=== PATIENT | female | born 1950 | race Caucasian/White ===

== ENCOUNTER → 2024-07-27 | Outpatient (CLI) | payer MEDICARE, OTHER, SELFPAY ==
--- NOTE | 2024-07-27 14:15 | POL_PTH ---
PATIENT: KELLEE PATTERSON LOC: [facility] U#:[id number] AGE/SX: 74/F ROOM: RE07/27/[address]: Dr. Candida Lancaster MD : 1950 BED: DIS: 07/27/2024 SPEC #: [id number] RECD: 07/27/24 16:02 STATUS: LUCAS ARANDA #: [id number] NIKKO: 07/27/24 14:[address]: Candida Lancaster DEPT: SURGICAL PATHOLOGY RECD BY: Lor Cabrera Tissues: Uterine cervix, NOS Procedures: Surgery Specimen Level IV HEADER OPERATION: Polypectomy PRE-OP DIAGNOSIS: Polyp TISSUE SUBMITTED: Cervical polyp MICROSCOPIC DIAGNOSIS Cervical polyp, polypectomy: Benign cervical polyp, inflamed. AM.mr 07/29/2024 MICROSCOPIC DESCRIPTION Slides are reviewed. GROSS DESCRIPTION Received is one container labeled with the patient's name and not further designated. The specimen consists of a piece of barron-pink polyp measuring 2.5 x 1.5 x 1.0cm. The specimen is serially sectioned and submitted entirely in two cassettes. 07/28/2024 TC:1 CPT:19024
[2024-08-03 15:08] LABS: HPV APTIMA, High Risk Negative (Negative)
== END | disposition home or self-care (01) ==
PROVIDERS: Referring Provider Obstetrics & Gynecology; Visit Provider Obstetrics & Gynecology
DX: Z12.4 Encounter for screening for malignant neoplasm of cervix (principal); Z78.0 Asymptomatic menopausal state; N84.1 Polyp of cervix uteri
CPT/HCPCS: 87624; 88175; 88305; G0145

== ENCOUNTER → 2024-08-11 | Outpatient (CLI) | payer MEDICARE, OTHER, SELFPAY ==
--- NOTE | 2024-08-11 15:56 | US_ITS ---
INDICATION: pelvic pain EXAMINATION: Ultrasound US Pelvis Non OB Complete With Transvaginal Imaging TECHNIQUE: Transabdominal and transvaginal pelvic ultrasound was performed. Grayscale, spectral waveform, and color flow Doppler evaluation of the adnexa. COMPARISON: FINDINGS: UTERUS: Anteverted. The uterus measures 6.7 x 3.6 x 3.2 cm. There is no uterine mass. The endometrial stripe measures 23 mm in AP diameter with endometrial fluid and an echogenic irregular heterogeneous nodular 1.9 x 1.6 x 1.4 cm lesion. RIGHT OVARY: Nonvisualization. LEFT OVARY: Nonvisualization. FREE FLUID: None. US/Pelvic w/ Transvaginal IMPRESSION: Endometrial thickening with fluid and an echogenic irregular heterogeneous nodular 1.9 x 1.6 x 1.4 cm lesion. Further evaluation is recommended. Electronically Signed: Dany Castro DO at 17:42 EDT ,
== END | disposition home or self-care (01) ==
PROVIDERS: PCP Family Medicine; Referring Provider Obstetrics & Gynecology; Visit Provider Obstetrics & Gynecology
DX: R10.2 Pelvic and perineal pain (principal)
CPT/HCPCS: 76830; 76856

== ENCOUNTER → 2024-10-12 | Outpatient (CLI) | payer MEDICARE, OTHER, SELFPAY ==
--- NOTE | 2024-10-12 | EMB_PTH ---
PATIENT: KELLEE PATTERSON LOC: [facility]#:[id number] AGE/SX: 74/F ROOM: RE10/12/[address]: Dr. Candida Lancaster MD : 1950 BED: DIS: 10/12/2024 SPEC #: [id number] RECD: 10/12/24 11:49 STATUS: LUCAS REMitchel #: [id number] NIKKO: 10/12/24 00:[address]: Candida Lancaster DEPT: SURGICAL PATHOLOGY RECD BY: Kaiden Galloway ENTERED: 10/12/24 11:49 SP TYPE: ENDOM BX/C CORINNE DR: Dr. Gael Chakraborty MD Tissues: Endometrium, NOS Procedures: Surgery Specimen Level IV HEADER OPERATION: Endometrial biopsy PRE-OP DIAGNOSIS: Cystocele with incomplete uterovaginal prolapse TISSUE SUBMITTED: Endometrial tissue MICROSCOPIC DIAGNOSIS Endometrium, biopsy: Scant fragments of benign superficial glandular and squamous metaplastic epithelium. AM.mr 10/13/2024 MICROSCOPIC DESCRIPTION Slides are reviewed. GROSS DESCRIPTION Received is one container labeled with the patient's name and not further designated. The specimen consists of multiple mucoid fragments of that in aggregate measure 2.5 x 0.1 x <0.1cm. The specimen is totally submitted in one cassette. AM. 10/12/2024 TC:5 CPT:98957
== END | disposition home or self-care (01) ==
LOC: LABSPEC 10:47
PROVIDERS: PCP Family Medicine; Referring Provider Obstetrics & Gynecology; Visit Provider Obstetrics & Gynecology
DX: N81.2 Incomplete uterovaginal prolapse (principal)
CPT/HCPCS: 88305

== ENCOUNTER 2025-02-05 11:59 | Inpatient (IN) | payer MEDICARE, OTHER, SELFPAY ==
--- NOTE | 2024-11-06 08:17 | EKG12_ITS ---
Test Reason : PRE OP Blood Pressure : */* mmHG Vent. Rate : 56 BPM Atrial Rate : 56 BPM P-R Int : 216 ms QRS Dur : 84 ms QT Int : 426 ms P-R-T Axes : * -35 53 degrees QTcB Int : 411 ms Sinus bradycardia with 1st degree A-V block Left axis deviation Low voltage QRS Abnormal ECG Confirmed by FAUSTINA BLANCO, MONTSERRAT ([id number]), editor continuity and script BRIDGETTE CORRALES ([id number]) on 11/06/2024 10:52:05 AM Referred By: Candida Lancaster Confirmed By: MONTSERRAT WEEMS MD
[2024-11-06 08:54] LABS: Hematocrit 39.3 % (37-47); Mean Corp Hgb Conc 33.1 g/dL (32-36); Mean Corpuscular Volume 93.8 fL (81-99); Mean Platelet Vol. 8.4 fl (6.2-12.0); Platelet Count 359 K/mm3 (150-450); RBC Distribution Width CV 11.9 % (11.6-14.6); RBC Distribution Width SD 41.1 fl (35.1-43.9); Red Blood Count 4.19 M/mm3 (4.2-5.4); White Blood Count 7.8 K/mm3 (4.4-11.0)
[2024-11-06 09:25] LABS: ALB/GLOB Ratio 0.9 RATIO (0.9-2.4); AST(SGOT) 16 U/L (15-37); Alanine Aminotransfer ALT/SGPT 20 U/L (13-56); Albumin, Serum 3.4 g/dL (3.2-5.0); Alkaline Phosphatase 145 U/L (45-117); Anion Gap 6 (5-15); BUN 10 mg/dL (7-18); BUN/Creat Ratio 14.5 RATIO (10-20); Calcium,Total 9.3 mg/dL (8.5-10.1); Chloride 99 mmol/L (98-107); Creatinine, Serum 0.69 mg/dL (0.55-1.02); EST Glomerular Filtration Rate 89 mL/min (>60); Est Glom Filt Rate - Afr Amer 107 mL/min (>60); Globulin 3.8 g/dL (2.2-4.2); Glucose 100 mg/dL (74-106); Magnesium 2.1 mg/dL (1.6-2.6); Protein, Total 7.2 g/dL (6.4-8.2); Sodium Level 134 mmol/L (136-145)
--- NOTE | 2024-11-06 16:43 | PAT.ANE_ITS ---
Pre-Assessment Diagnosis/Proposed Procedure Planned Operative Procedure(s): Hysterectomy,Total Vaginal, Bilateral Salpingectomy Repair, Anterior & Posterior Sling Cysto Bilateral SSLF with Dermis Bilateral Ureteral Catheterization Anesthesia History Anesthesia History - email marketing manager: Anesthesia History - email marketing manager Hx Hospitalization No 10/30/24 08:51 Any Problems With Anesthesia No 10/30/24 08:51 Cholinesterase deficiency No 10/30/24 08:51 You/Your Family Experience No 10/30/24 08:51 fever (hyperthermia) with Relationship Recent Exposure to Contagious Disease Does patient have nerve No 10/30/24 08:51 stimulator Patient instructed to have device shut off --Does patient have Pacemaker or ICD? When Was Last Pacemaker Check QUESTION #4 FULL TEXT: You/Your Family Experience fever (hyperthermia) with Anesthesia Last Oral Intake Last Oral intake: Last Oral Intake NPO since Meds taken in AM with sips of water? Meds patient instructed to take am of surgery PONV PONV - email marketing manager: PONV - email marketing manager Female Yes 10/30/24 08:51 HX of Motion Sickness No 10/30/24 08:51 HX of N/V After Surgery No 10/30/24 08:51 Non-Smoker Yes 10/30/24 08:51 Duration of Surgery greater Yes 10/30/24 08:51 than 60 minutes Number of Risk Factors 3 10/30/24 08:51 PONV Score Moderate Risk 10/30/24 08:51 Height & Weight Height & Weight: Anesthesia: Height & Weight Height 5 ft 5.5 in 10/12/24 09:44 Respiratory Assessment Respiratory Assessment - email marketing manager: Respiratory Tract Infection Hx - email marketing manager Hx Respiratory Tract Infection Yes: GETTING OVER SINUS 10/30/24 08:51 INFECTION STOP Sleep Apnea STOP Sleep Apnea - email marketing manager: STOP Sleep Apnea - email marketing manager Hx Hypertension No 10/30/24 08:51 Hx Sleep Apnea No 10/30/24 08:51 CPAP BIPAP Do you snore loudly (louder No 10/30/24 08:51 than talking or can be heard Do you often feel tired/ No 10/30/24 08:51 fatigued/ sleepy during daytime? Has anyone observed you stop No 10/30/24 08:51 breathing during sleep? STOP Results Negative 10/30/24 08:51 QUESTION #5 FULL TEXT : Do you snore loudly (louder than talking or can be heard through closed doors)? Tobacco Use History Tobacco Use History - email marketing manager: Tobacco Use History - email marketing manager Tobacco Use Smoking Status Never smoker 10/30/24 08:51 Hx Tobacco Use No 10/30/24 08:51 Years Smoking Packs Smoked per Day Smoking Cessation Date was within the last 15 years Hx Smoking Cessation Date Hx Smoking Cessation Counseling Hematologic Medial History Hematologic Hx - email marketing manager: Hematologic Medical Hx - comb winder Hx of Blood Transfusion No 10/30/24 08:51 Hx of Transfusion in last 3 No 10/30/24 08:51 Months Date of Last Transfusion (if within last 3 months) Ever experience any problems No 10/30/24 08:51 with transfusion(s)? Specify any problems Hx of Preganancy in last 3 No 10/30/24 08:51 Months Nurse Filling Out Transfusion [facility] 10/30/24 08:51 & Questions: Date: 10/30/24 10/30/24 08:51 Time: 08:59 10/30/24 08:51 Patient unable to answer at this time (ie. confused, unrespo /Reproduction History /Reproductive History - email marketing manager: /Reproductive Hx- email marketing manager Hx Now No 10/30/24 08:51 Gestational Age (in weeks): EDC: Hx Hx Para Hx Section SAB No 10/12/24 09:50 REPLACED BY [facility] Medical History (Updated 10/30/24 @ 08:58 by Macarena Cooper) Wears dentures Bruising Bladder disease High cholesterol Non-smoker Bladder prolapse Prolapse of intestine Uterine prolapse Home Medications ?Medication ?Instructions ?Recorded ?Last Taken ?Type hydroxyzine HCl 25 mg tablet 25 mg PO QHS 07/27/24 Unknown History metoprolol succinate 25 mg 25 mg PO QDAY 07/27/24 Unknown History tablet,extended release 24 hr phentermine 37.5 mg capsule 37.5 mg PO QDAY 07/27/24 Unknown History rosuvastatin 5 mg tablet 5 mg PO QDAY 07/27/24 Unknown History Allergy/AdvReac Type Severity Reaction Status Date / Time Penicillins Allergy Unknown Rash Verified 10/26/24 11:28 Family History Father CAD (coronary artery disease) CVA (cerebral vascular accident) Heart disease Hypertension Mother Colon cancer Surgical History (Updated 10/30/24 @ 08:52 by Macarena Cooper) History of cataract surgery H/O Achilles tendon repair Social History household members: spouse housing: house number of children: 3 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 Sinus bradycardia at 56 bpm with first- degree AV block. Left axis deviation. Recommendation Anesthesia Recommendation Anesthesia recommendation: OPTIMIZED for anesthesia
[2025-01-29 10:43] LABS: Mean Corp Hgb Conc 34.2 g/dL (32-36); Mean Corpuscular Hgb 31.7 pg (27.0-32.0); Mean Corpuscular Volume 92.7 fL (81-99); Mean Platelet Vol. 8.5 fl (6.2-12.0); Platelet Count 318 K/mm3 (150-450); RBC Distribution Width CV 12.7 % (11.6-14.6); RBC Distribution Width SD 43.4 fl (35.1-43.9); White Blood Count 6.9 K/mm3 (4.4-11.0)
[2025-01-29 11:27] LABS: ALB/GLOB Ratio 1.3 RATIO (0.9-2.4); AST(SGOT) 20 U/L (<=31); Alanine Aminotransfer ALT/SGPT 13 U/L (<=34); Albumin, Serum 4.2 g/dL (3.4-4.8); Alkaline Phosphatase 114 U/L (35-104); Anion Gap 13 (5-15); BUN 13 mg/dL (4-19); Calcium,Total 9.5 mg/dL (7.6-11.0); Carbon Dioxide 24.2 mmol/L (21.0-32.0); Chloride 99 mmol/L (98-108); Creatinine, Serum 0.69 mg/dL (0.70-1.20); EST Glomerular Filtration Rate 91 (>60); Estimated Creatinine Clearance 63.35 ml/min (50-250); Globulin 3.3 g/dL (2.2-4.2); Glucose 96 mg/dL (70-99); Potassium 4.2 mmol/L (3.3-5.1); Protein, Total 7.5 g/dL (5.9-8.4); Sodium Level 135 mmol/L (133-145); Total Bilirubin 0.32 mg/dL (0.00-1.30)
[2025-01-29 11:58] LABS: Magnesium 2.2 mg/dL (1.5-2.2)
[2025-02-05] VITALS (11 sets, daily range): BP systolic 110–148; BP diastolic 59–98; PULSE 58–66; RESP 13–18; TEMP 36.1–36.8; O2SAT 96–100; BMI 31.4
[2025-02-05] MEDS: DEXTROSE 5% IV (10:38)
[2025-02-05] MEDS: GENTAMICIN IV (10:38)
[2025-02-05] MEDS: Lactated Ringers 1,000 ML 40 ML IV (10:38)
[2025-02-05] MEDS: WATER IV (10:38)
[2025-02-05] MEDS: Gabapentin 600 MG Tablet PO (10:40)
[2025-02-05] MEDS: Celecoxib 200 MG Capsule 400 MG PO (10:40)
[2025-02-05] MEDS: Enoxaparin 40 MG/0.4 ML Syringe SC (10:41)
[2025-02-05] MEDS: Acetaminophen 500 MG Tablet 1000 MG PO ×3 (10:41→21:15)
[2025-02-05 10:42] LABS: Hematocrit 42.9 % (37-47); Hemoglobin 14.1 g/dL (12.0-15.0); Mean Corp Hgb Conc 32.9 g/dL (32-36); Mean Corpuscular Hgb 31.3 pg (27.0-32.0); Mean Corpuscular Volume 95.1 fL (81-99); Mean Platelet Vol. 8.9 fl (6.2-12.0); Platelet Count 353 K/mm3 (150-450); RBC Distribution Width CV 12.7 % (11.6-14.6); RBC Distribution Width SD 44.6 fl (35.1-43.9); Red Blood Count 4.51 M/mm3 (4.2-5.4)
[2025-02-05] MEDS: Scopolamine 1mg/72hr Patch 1 PATCH TD (10:42)
[2025-02-05] MEDS: Magnesium 1 GM over 15 mins IV (10:45)
[2025-02-05 11:01] LABS: Bedside Glucose 69 mg/dL (74-106)
--- NOTE | 2025-02-05 11:06 | HP.PCM_ITS ---
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 Complaint: Preop TVHBS Lead Operator Required: No Is patient in pain?: No Allergies Penicillins Allergy (Unknown, Verified 10/26/24 11:28) Rash Medications ?Medication ?Instructions ?Recorded ?Confirmed ?Type hydroxyzine HCl 25 mg tablet 25 mg PO QHS 07/27/24 10/26/24 History metoprolol succinate 25 mg 25 mg PO QDAY 07/27/24 10/26/24 History tablet,extended release 24 hr phentermine 37.5 mg capsule 37.5 mg PO QDAY 07/27/24 10/26/24 History rosuvastatin 5 mg tablet 5 mg PO QDAY 07/27/24 10/26/24 History Is last menstrual period known: No Post menopausal: Yes Patient : No Nurse's Note: Preop [facility]S [facility] Medical History Bladder prolapse Uterine prolapse Prolapse of intestine Surgical History H/O Achilles tendon repair Family History Father CAD (coronary artery disease) CVA (cerebral vascular accident) Heart disease HypertensionMother Colon cancer Social History household members: spouse housing: house number of children: 3 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 She has had a prolapse consultation and cervical polyp. Patient saw Dr. Corrales and is wanting to proceed with surgical intervention however cervical polyp was seen on exam so she was sent here to be evaluated as well as to coordinate surgical intervention. Patient denies any bleeding but has noted significant vaginal pressure and discomfort. She has urinary symptoms and is ready to proceed with hysterectomy and pelvic floor repair. Female Reproductive History Questions: metorrhagia: No, dyspareunia: No and PCB: No Menopausal Symptoms: No night sweats History 4 Elective abortions Hx Para 3 Spontaneous abortions Hx # Term Pregnancies Ectopic pregnancies Hx # Pregnancies Multiple births # of living children Past Pregnancies Del. Date Name GA/Weeks Outcome Route Bth Weight Gen Labor Lgth Anesthesia Del Locatn Provider FOB Unknown Claudia Unknown Breanna Unknown Radha ROS Const Constitutional: Reports system reviewed and no additional complaints, except as documented; Denies fatigue, headache(s) or night sweats ENT ENT: Reports system reviewed and no additional complaints, except as documented Cardio Card: Denies chest pain Resp Resp: Denies cough or dyspnea GI GI: Denies abdominal pain, bloating, change in stool character, constipation, fecal incontinence, nausea or vomiting : Reports pelvic pain, prolapse symptoms, urinary frequency, urinary incontinence, urinary urgency and vaginal dryness; Denies nipple discharge, sexual dysfunction, vaginal discharge, vaginal odor or vaginal pruritus Musc Musc: Reports arthralgias and back pain; Denies muscle weakness Skin Skin/Breast: Denies alopecia, change in hair, dry skin, breast mass, breast pain, breast skin changes or nipple discharge Neuro Neuro: Reports system reviewed and no additional complaints, except as documented Psych Psych: Denies anxiety or depression Endo Endo: Denies cold intolerance, excessive sweating, heat intolerance or polydipsia Craig/Lymph Hematologic/Lymphatic: Denies easy bleeding, Denies easy bruising and Denies lymphadenopathy Exam Const General: cooperative, healthy appearing, comfortable, no acute distress and well developed Orientation: alert [facility] Head: normal to inspection, normocephalic and atraumatic Ears: hearing grossly normal bilaterally and external ears normal Nose: external nose normal and nares normal Face and sinus: normal facial exam Neck Neck: normal visual inspection, full ROM, no lymphadenopathy and trachea midline Thyroid: thyroid normal Chest Chest palpation & inspection: normal inspection of the chest Breast inspection: normal inspection of the breasts, normal inspection of the a xillae, abnormal inspection of the axilla and abnormal inspection of the breast Resp Effort & Inspection: normal respiratory effort Auscultation: clear to auscultation bilaterally Cardio Rate: regular rate Rhythm: regular rhythm Heart Sounds: S1 normal and S2 normal GI Inspection: normal to inspection and non-distended Palpation: soft, no hepatosplenomegaly, no hepatomegaly, not rigid and nontender General: bladder normal to palpation External Female Exam: abnormal external appearance (atrophic introitus), normal appearance of the urethra and no lesions Urethra: normal appearance of the urethra Speculum Exam - Vagina: abnormal appearance of the vagina, normal vaginal discharge, vagina atrophic and no lesions Speculum Exam - Cervix: normal appearance of the cervix Bimanual Exam- Vagina & Uterus: normal bimanual exam, uterine size normal, bladder normal to palpation, uterine shape normal, uterine mobility normal and non-tender Bimanual Exam- Adnexa, other: normal adnexae, no masses, rectocele, cystocele and vaginal apex descent Pelvic Support: cystocele severe, rectocele severe and vaginal apex descent Musc Other: gross motor intact no deficits, full bilateral strength Skin General: no rashes or lesions noted and atrophy Neuro General: patient alert, patient awake, moves all extremities and no focal motor deficits Motor: muscle tone normal throughout Extrem General: normal to inspection and no pedal edema Psych Appearance: grossly normal Mental Status: mental status grossly normal Affect: normal affect Speech and Movement: speech and movement normal Coding Level of Care Code No Charge Diagnoses Cystocele with incomplete uterovaginal prolapse N81.2 Cervical polyp N84.1 Assessment and Plan Assessment and Plan (1) Cystocele with incomplete uterovaginal prolapse: Status: Acute Comment: TVHBS with [place] butcher case (2) Cervical polyp: Status: Acute Comment: removed Plan After discussing the patient's diagnosis and treatment plan options, patient wishes to proceed with surgical management. I have discussed with the patient the risks, benefits, and alternatives of the procedure which include but are not limited to risks of anesthesia, bleeding, infection, possible damage to bowel, bladder, or surrounding vasculature which could lead to additional surgery to evaluate any complications. Patient agrees to procedure and wishes to proceed. ACOG/uptodate references given for additional information regarding procedure. UPDATE- I have seen the patient and performed any clinically relevant updates to the history and physical exam. Candida Lancaster MD
--- NOTE | 2025-02-05 11:08 | PCM.PRE.AN2 ---
ASA Classification* ASA Classification ASA Classification: 2 Assessment & Plan Anesthesia* Anesthesia Assessment Anesthesia Assessment: Discussed sedation and/or anesthesia options, risks, benefits, and alternatives with patient/parents/legal guardian/POA. Questions invited. The patient/parents/legal guardian/POA seems to understand and agrees to proceed with anesthesia plan. Reviewed the physical assessment, medical history, allergy history and patient home medications list prior to surgery/procedure/anesthetic and documented any changes. Performed airway and anesthesia risk assessments. Anesthesia Type Anesthesia Type: General (Consider [place] scope intubation.) History Source History Obtained from:: Patient and Chart Anesthesia Focused Assessment* Temperature: 98.0 F Pulse Rate: 65 Blood Pressure: 148/98 Respiratory Rate: 18 Pulse Ox: 100 Oxygen Delivery Method: Room Air Airway Assessment Mouth opens: >3 cm Mallampati Score: IV (Consider GlideScope intubation) Teeth Condition: Dentures (Patient has upper full dentures.) and Partial (Patient has partial lower dentures. Rest are tight.) Neck Range of motion (ROM): Full ROM Focused Labs Anesthesia Preop lab: CBC WBC 12.0 K/mm3 (4.4-11.0) H 02/05/25 10:02/05/25 RBC 4.51 M/mm3 (4.2-5.4) 02/05/25 10:02/05/25 Hgb 14.1 g/dL (12.0-15.0) 02/05/25 10:31 02/05/25 Hct 42.9 % (37-47) 02/05/25 10:31 02/05/25 Plt Count 353 K/mm3 (150-450) 02/05/25 10:31 02/05/25 CHEMISTRY Potassium 4.2 mmol/L (3.3-5.1) 01/29/25 09:41 01/29/25 Sodium 135 mmol/L (133-145) 01/29/25 09:41 01/29/25 Magnesium 2.2 mg/dL (1.5-2.2) 01/29/25 09:42 01/29/25 BUN 13 mg/dL (4-19) 01/29/25 09:41 01/29/25 Creatinine 0.69 mg/dL (0.70-1.20) L 01/29/25 09:41 01/29/25 Glucose 96 mg/dL (70-99) 01/29/25 09:41 01/29/25 POC Glucose 69 mg/dL (74-106) L 02/05/25 10:37 02/05/25 COAG Pre-Assessment Diagnosis/Proposed Procedure Planned Operative Procedure(s): (B) ERAS,Hysterectomy,Total Vaginal, Bilateral Salpingectomy (B) Repair, Anterior & Posterior Sling Cysto Bilateral SSLF with Dermis Bilateral Ureteral Catheterization Anesthesia History 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 When Was Last Pacemaker Check QUESTION #4 FULL TEXT: You/Your Family Experience fever (hyperthermia) with Anesthesia Last Oral Intake Last Oral intake: Last Oral Intake NPO since 08:00 02/05/25 10:33 Meds taken in AM with sips of Yes 02/05/25 10:33 water? 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 Female Yes 01/22/25 10:04 HX of Motion Sickness No 01/22/25 10:04 HX of N/V After Surgery No 01/22/25 10:04 Non-Smoker Yes 01/22/25 10:04 Duration of Surgery greater Yes 01/22/25 10:04 than 60 minutes Number of Risk Factors 3 01/22/25 10:04 PONV Score Moderate Risk 01/22/25 10:04 Height & Weight Height & Weight: Anesthesia: Height & Weight Height 5 ft 5.5 in 02/05/25 10:33 Weight: 87 kg 02/05/25 10:33 Body Mass Index (BMI) 31.4 02/05/25 10:33 Respiratory Assessment Respiratory Assessment - 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 Has anyone observed you stop No 01/22/25 10:04 breathing during sleep? STOP Results Negative 01/22/25 10:04 QUESTION #5 FULL TEXT : Do you snore loudly (louder than talking or can be heard through closed doors)? 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 Specify any problems Hx of Preganancy in last 3 No 01/22/25 10:04 Months Nurse Filling Out Transfusion VCHRISTIN 01/22/25 10:04 & Questions: Date: 01/22/25 01/22/25 10:04 Time: 10:04 01/22/25 10:04 Patient unable to answer at this time (ie. 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 operator Hx Now No 01/22/25 10:04 Gestational Age (in weeks): EDC: Hx Hx Para Hx Section SAB No 01/22/25 10:04 Active Medications Active Medications: Current Medications Generic Name Dose Route Start Last Admin Trade Name Freq PRN Reason Stop Dose Admin Acetaminophen 1,000 mg 02/05/25 12:00 02/05/25 10:41 Acetaminophen 500 Mg Tablet PO 02/05/25 12:01 1,000 mg PREOP ONE Administration Celecoxib 400 mg 02/05/25 12:00 02/05/25 10:40 Celecoxib 200 Mg Capsule PO 02/05/25 12:01 400 mg X1 ONE Administration Dexamethasone Sodium Phosphate 8 mg 02/05/25 12:00 Dexamethasone 4 Mg/Ml Vial IV 02/05/25 12:01 X1 ONE Enoxaparin Sodium 40 mg 02/05/25 12:00 02/05/25 10:41 Enoxaparin 40 Mg/0.4 Ml Syringe SC 02/05/25 12:01 40 mg X1 ONE Administration Gabapentin 600 mg 02/05/25 12:00 02/05/25 10:40 Gabapentin 600 Mg Tablet PO 02/05/25 12:01 600 mg PREOP ONE Administration Lactated Ringer's 1,000 mls @ 40 mls/hr 02/05/25 12:00 02/05/25 10:38 IV 40 mls/hr .Q25H JAYNE Administration Clindamycin Phosphate 900 mg in 50 mls @ 75 mls/hr 02/05/25 12:00 Cleocin IV 02/05/25 12:39 PREOP ONE Gentamicin Sulfate 330 mg/ 58.25 mls @ 100 mls/hr 02/05/25 12:00 02/05/25 10:38 Dextrose IV 02/05/25 12:34 100 mls/hr PREOP ONE Administration Magnesium Sulfate 1 gm/ 102 mls @ 408 mls/hr 02/05/25 12:00 Dextrose IV 02/05/25 12:14 X1 ONE Insulin Human Lispro 0 unit 02/05/25 12:00 Insulin Lispro 100 Unit/Ml Insuln.Pen SC 02/05/25 18:00 Q4H PRN PRN BG >/= 180, SEE PROTOCOL Protocol Ondansetron HCl 4 mg 02/05/25 12:00 Ondansetron 4 Mg/2 Ml Vial IV 02/05/25 12:01 X1 ONE Scopolamine HBr 1 patch 02/05/25 12:00 02/05/25 10:42 Scopolamine 1mg/72hr Patch TD 02/05/25 12:01 1 patch X1 ONE Administration [facility] Medical History Wears dentures Bruising Bladder disease High cholesterol Non-smoker Bladder prolapse Prolapse of intestine Uterine prolapse Home Medications ?Medication ?Instructions ?Recorded ?Last Taken ?Type hydroxyzine HCl 25 mg tablet 25 mg PO QHS 07/27/24 02/04/25 History metoprolol succinate 25 mg 25 mg PO QDAY 07/27/24 02/05/25 History tablet,extended release 24 hr phentermine 37.5 mg capsule 37.5 mg PO QDAY 07/27/24 01/31/25 History rosuvastatin 5 mg tablet 5 mg PO QDAY 07/27/24 02/04/25 History ascorbic acid (vitamin C) 1,000 mg 1 g PO DAILY 01/22/25 02/04/25 History tablet (C-1000) cholecalciferol (vitamin D3) 25 25 mcg PO DAILY 01/22/25 02/04/25 History mcg (1,000 unit) capsule (Vitamin D3) coenzyme Q10 30 mg capsule (Co 30 mg PO DAILY 01/22/25 02/04/25 History Q-10) multivitamin (Daily Multi-Vitamin 1 tab PO DAILY 01/22/25 02/04/25 History tablet) turmeric 400 mg capsule 400 mg PO DAILY 01/22/25 02/04/25 History vitamin B complex 1 tab PO DAILY 01/22/25 02/04/25 History Allergy/AdvReac Type Severity Reaction Status Date / Time Penicillins Allergy Unknown Rash Verified 02/05/25 10:29 Family History Father CAD (coronary artery disease) CVA (cerebral vascular accident) Heart disease Hypertension Mother Colon cancer Surgical History History of cataract surgery H/O Achilles tendon repair Social History household members: spouse housing: house number of children: 3 current occupational status: 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
--- NOTE | 2025-02-05 11:36 | PCM.OPRPT ---
Problems Associated Problem List Diagnoses (1) Cystocele with incomplete uterovaginal prolapse: Operative Report (Standard) Operative Information Date of Procedure: 02/05/25 Pre-Operative Diagnosis: Incomplete uterovaginal prolapse, stress urinary incontinence Post-Operative Diagnosis: Same Surgery/Procedure Performed: Anterior and posterior repair, right sacrospinous ligament fixation, mid urethral sling, cystoscopy with bilateral ureteral catheterization farm contractor buyer: Yes Hide Handler: Lilia Cook Tasks completed by assistant housekeeping manager: Retracting Type of Anesthesia: General RN Documented Start/Stop Times: Operation Date: 02/05/25 12:00 Case Time Into Pre-Op 02/05/25 10:06 Out of Pre-Op 02/05/25 11:52 Anesthesia Start 02/05/25 11:56 Into Room 02/05/25 11:56 Procedure Start 02/05/25 12:20 Procedure End 02/05/25 15:23 Procedure Start Time: 12:20 Procedure Stop Time: 15:23 Select all DRAINS/GRAFTS/IMPLANTS that apply: Drains Drain details: Quevedo catheter Estimated Blood Loss: 40 cc Specimen collected: No Description of surgery: The patient is a 74-year-old female with significant incomplete uterovaginal prolapse. She presents for surgical intervention. Informed consent was obtained. She was taken to the operating room and placed on the operating room table. Anesthesia monitored the head, neck, airway, IV access and vital signs throughout the case. Once anesthesia was appropriately administered, she was prepped and draped in usual sterile fashion. A Quevedo catheter was inserted using sterile technique the bladder was drained. Dr. Lancaster performed her portion of the procedure and turned the case over to me. At this time, the Quevedo catheter was once again removed and the cystoscope was inserted into the urinary bladder under direct visualization. There was no evidence of injury, laceration or foreign body present. The whistle-tip catheter was used to cannulate the right ureteral orifice were easily advanced to 20 cm with no evidence of injury or obstruction. This was then repeated on the patient's left side with the same findings. The cystoscope and whistle-tip catheter were then removed and the Quevedo catheter was replaced with 10 cc in the balloon. I then proceeded to reconstruct her anterior vaginal wall. The anterior vaginal wall was short in length. The sacrospinous ligaments were not accessible from the anterior vaginal wall. The submucosa was injected with Marcaine. A midline incision was made and sharp and blunt dissection was performed bilaterally until the pubocervical fascia was identified bilaterally. This fascia was brought together in a 2 layer closure first using 3-0 PDS followed by 2-0 Vicryl. The incision was then closed with running interlocking 2-0 Vicryl. Attention was then turned posteriorly where the tissue in the submucosa was injected with Marcaine. A midline incision was made and sharp and blunt dissection was performed bilaterally until the rectovaginal fascia was identified. On the right side only, dissection continued all the way to the sacrospinous ligament. This ligament was freed from surrounding tissues with blunt dissection. The [employer] Foods[employer] device was then utilized to place a lisa into the sacrospinous ligament. An Ethibond suture was then brought through in full-thickness fashion the vaginal mucosa posteriorly at the apex. This was tied into position. The rectovaginal fascia was then brought together in a 2 layer closure using both interrupted 3-0 PDS followed by 2-0 Vicryl interrupted suturing. Once the support structures were in place and the perineal body was reconstructed, the incision was closed with running interlocking 2-0 Vicryl. The mid urethra was then isolated and injected with Marcaine. A midline incision was made approximately 2 cm in length. Sharp and blunt dissection was performed on either side of the urethra with care being taken to avoid entrance into the urethra or the vaginal mucosa. Using the provided trocars, the Altis mid urethral sling was placed into the transobturator complexes bilaterally. It lay flat against the urethra in and was positioned using the tensioning suture. When it was in correct location, the tensioning suture was cut. The midline incision was closed using running interlocking 2-0 Vicryl. The patient was then taken out of Trendelenburg and placed flat. The Quevedo catheter was removed and the cystoscope was inserted through the urethra under direct visualization. There was no evidence of injury to the urinary bladder. The ureteral orifices were in correct anatomic position and were intubated gently with a whistle-tip catheter. The whistle-tip catheter advanced all the way to 20 cc without difficulty on the patient's left side it advanced to 15 cc without difficulty and then a large jet of urine was visualized. The cystoscope and whistle-tip catheter were then removed and the Quevedo catheter was replaced with 10 cc in the balloon. The vagina was packed with saline moistened plain packing. She was awakened and taken to the recovery room in good condition. There were no complications during this procedure. Surgical Findings: Good vault length, short anteriorly and sacrospinous ligament fixation performed through posterior access. Complications Complications: No Admit VTE Documentation VTE Present on Admission: Yes VTE Mechan Device Prophylaxis: SCD's VTE Pharm Prophylaxis ordered?: Yes
--- NOTE | 2025-02-05 11:38 | DCINST_ITS ---
Discharge Instructions Diet Discharge Diet: No restrictions Activity Discharge Activity: May Drive (In 2 weeks) and May Shower May resume sexual activity in: 8 weeks Lifting Restrictions: 5 pounds, no strenuous activity, no exercise, no vacuuming, no walking dog Additional Activity Instructions:: No tub bathing, swimming or hot tubs Dressing / Incision Call your doctor if your incision/area has: Continuous Slow Oozing, Sudden Increased Bleeding, Increased Pain/ Swelling and Foul Smelling Discharge Call your doctor if you observe: Fever of 101 or Higher, Inability to urinate and Inability to have a bowel movement Follow Up Care Please Follow Up With: Cata Corrales MD When: Dr. Corrales's office will call to make follow-up arrangements for appointment in 1 to 2 weeks. Test Results: Test results from this visit will be discussed in further detail at your follow- up appointment, if applicable. Discharge Plan Admission Admit Date/Time: 02/05/25 11:59 Attending Provider: Candida Lancaster Primary Care Provider: Gael Chakraborty Consulting Providers: Cata Corrales Discharge Orders/Prescriptions Prescriptions: New oxycodone-acetaminophen 5-325 mg tablet 1 tab PO Q8H PRN (Reason: pain) 3 Days Qty: 10 0RF ondansetron 4 mg tablet,disintegrating 4 mg PO Q8H PRN (Reason: nausea and vomiting) Qty: 10 0RF sulfamethoxazole-trimethoprim 800-160 mg tablet 1 tab PO BID 3 Days Qty: 6 0RF Continued hydroxyzine HCl 25 mg tablet 25 mg PO QHS metoprolol succinate 25 mg tablet extended release 24 hr 25 mg PO QDAY phentermine 37.5 mg capsule 37.5 mg PO QDAY Rx Instructions: must administer 30 minutes before or 1-2 hours after breakfast rosuvastatin 5 mg tablet 5 mg PO QDAY multivitamin [Daily Multi-Vitamin] Tablet 1 tab PO DAILY vitamin B complex Tablet 1 tab PO DAILY ascorbic acid (vitamin C) [C-1000] 1,000 mg tablet 1 g PO DAILY cholecalciferol (vitamin D3) [Vitamin D3] 25 mcg (1,000 unit) capsule 25 mcg PO DAILY coenzyme Q10 [Co Q-10] 30 mg capsule 30 mg PO DAILY turmeric 400 mg capsule 400 mg PO DAILY Other Ambulatory Orders: 12 Lead EKG (Routine) Timeframe: [id number] Location: None Selected Ordered By: Dr. Candida Lancaster Referrals / Follow Up: Gael Chakraborty MD [Primary Care Provider] -
--- NOTE | 2025-02-05 12:00 | HYST_PTH ---
PATIENT: KELLEE PATTERSON LOC: [facility]3 U#:[id number] AGE/SX: 74/F ROOM: FL319 RE02/05/[address]: Dr. Candida Lancaster MD : 1950 BED: 1 DIS: 02/06/2025 SPEC #: [id number] RECD: 02/05/25 16:43 STATUS: LUCAS ARANDA #: [id number] NIKKO: 02/05/25 12:[address]: Candida Lancaster DEPT: SURGICAL PATHOLOGY RECD BY: Lor Cabrera ENTERED: 02/08/25 08:15 SP TYPE: HYSTERECT OTHR DR: MD Dr. Cata Sullivan MD Tissues: A - Uterus, NOS Procedures: Surgery Specimen Level IV HEADER OPERATION: ERAS, total vaginal hysterectomy, bilateral salpingectomy PRE-OP DIAGNOSIS: Cystocele with incomplete uterovaginal prolapse TISSUE SUBMITTED: A- Uterus, cervix, bilateral fallopian tubes MICROSCOPIC DIAGNOSIS A. Uterus, cervix, bilateral fallopian tubes, hysterectomy and bilateral salpingectomy: * Cervix: mild hyperkeratosis. * Endometrium: polypoid simple hyperplasia without atypia, benign endometrial polyp (2.0 cm). * Myometrium: adenomyosis, leiomyoma x2 (1.5 cm). * Fallopian tubes: no specific pathologic change x2. MICROSCOPIC DESCRIPTION Slides are reviewed. GROSS DESCRIPTION A. Received in formalin in a container labeled with the patient's name, date of , and uterus, cervix, bilateral fallopian tubes is a hysterectomy specimen with attached cervix and bilateral detached and unoriented fimbriated fallopian tubes. The uterus is 53.3 g and 8.5 cm from fundus to ectocervix, 3.5 cm from cornu to cornu, and 3.5 cm from anterior to posterior. The anterior and posterior serosal reflections are both roughened and appear to extend to the same point. No distinct ovarian or uterine ligaments are identified at the cornua. Orientation is unable to be determined. The remaining serosa is barron-pink and focally roughened. The cervix is white-pink, wrinkled and glistening measuring 3.2 x 3.2 cm. There is a 1.0 cm slitlike os. The specimen is bivalved to reveal an elongated and markedly narrow endocervical canal measuring 5 cm in length by 0.1 cm in diameter. The triangular endometrial cavity is filled with thick, brown, cloudy fluid. The cavity is 4.0 cm in length by 2.6 cm in width with barron smooth possible endometrium measuring 0.1 cm in thickness. One aspect is notable for a 2.0 x 1.5 x 1.3 cm barron-pink polyp which is confined to the mucosa. The opposing aspect exhibits 3 ill-defined barron-pink mucosal nodules ranging from 0.4 x 0.3 x 0.3 cm to 0.7 x 0.5 x 0.2 cm. Each is confined to the mucosa. No mass-like lesion is grossly recognized. The 0.9 cm barron-pink myometrium exhibits 4 intramural and subserosal nodules within the anterior and posterior aspects ranging from 0.4 to 1.5 cm in greatest dimension. No hemorrhage or necrosis is identified. The bilateral fimbriated fallopian tubes exhibit no orientation and each measures 1.7 cm in length by 0.6 centimeters in diameter. The serosa of each is purple-boswell, smooth and glistening, and each exhibits feathery fimbriated ends. Serial sections of each reveal a pinpoint lumen. Mud Car Worker sections:A1. Anterior and posterior cervixA2. Serosal shavesA3. Full-thickness section with large polyp with underlying myometrial noduleA4. Superficial endomyometrium with large polypA5. Remainder of large polypA6. Opposing side full-thickness section with small mucosal nodules and underlying myometrial noduleA7. Superficial endomyometrium with remainder of small mucosal nodulesA8. 1 fallopian tubeA9. Second fallopian tube [facility] 02-08-2025 CPT:02997
[2025-02-05] MEDS: dexAMETHasone 4 MG/ML Vial 8 MG IV (12:14)
[2025-02-05] MEDS: Clindamycin 900 MG/50 ML BAG 75 MG IV (12:17)
--- NOTE | 2025-02-05 13:39 | OP.PCM_ITS ---
Problems Associated Problem List Diagnoses (1) Cystocele with incomplete uterovaginal prolapse: Multi Select Codes Urinary/Genital Urinary/Genital CPT Codes: 70910 TVH+BS/O <250gr uterus Operative Report (Standard) Operative Information Date of Procedure: 02/05/25 Pre-Operative Diagnosis: see problem list details Post-Operative Diagnosis: same Surgery/Procedure Performed: total vaginal hysterectomy bilateral salpingectomy analytical statistician: Yes Timber Girdler: Lilia Cook Tasks completed by surgical first assistant: Opening & closing and Retracting Type of Anesthesia: General RN Documented Start/Stop Times: Operation Date: 02/05/25 12:00 Case Time Into Pre-Op 02/05/25 10:06 Out of Pre-Op 02/05/25 11:52 Anesthesia Start 02/05/25 11:56 Into Room 02/05/25 11:56 Procedure Start 02/05/25 12:20 Procedure End 02/05/25 15:23 Anesthesia End 02/05/25 15:50 Out of Room 02/05/25 15:50 Into Recovery 02/05/25 15:58 Out of Recovery 02/05/25 17:03 Procedure Start Time: 12:20 Procedure Stop Time: 15:23 Select all DRAINS/GRAFTS/IMPLANTS that apply: Drains Drain details: purdy Estimated Blood Loss: 300 Specimen collected: Yes Description of specimen(s) removed: uterus tubes Description of surgery: Patient was taken to the operating room and was placed under general anesthesia was prepped and draped in normal sterile fashion in the dorsal lithotomy position. Preoperative antibiotics and SCDs and Purdy catheter was placed inside the bladder. Weighted speculum was placed in the vagina and the anterior and posterior lip of the cervix was grasped with 2 Gail clamps and circumferentially injected with dilute vasopressin. A circumferential incision was made with a scalpel and the posterior cul-de-sac was entered into sharply and a longneck speculum was placed. The anterior cul-de-sac was also dissected down and entered into sharply and the uterosacral ligaments were clamped cut and suture ligated bilaterally followed by the cardinal ligaments which were Clamped cut and suture ligated bilaterally with 0 Monocryl. The uterus serially descended and progressive bites were taken bilaterally up to the level of the utero-ovarian ligament bilaterally which was clamped transected and double liga cameron with 0 Monocryl suture and 0 Vicryl free tie. Bilateral fallopian tubes and ovaries were well visualized and noted be within normal limits and the bilateral fallopian tubes were transected across the base with a Ana clamp and removed and sutured with 0 Vicryl suture. Excellent hemostasis was noted. The vagina was closed with [id number] 0 Vicryl pop offs including the posterior and an terior peritoneum in the reapproximation. Excellent hemostasis was noted. All instruments removed from the vagina clear urine was noted at the end of the procedure and then Dr. Corrales began her portion of the procedure. Surgical Findings: prolapse, nl uterus tubes, and ovaries. Complications Complications: No
[2025-02-05] MEDS: Lactated Ringers 1,000 ML 70 ML IV ×2 (15:00→16:44)
[2025-02-05] MEDS: Vasopressin 20 UNITS/ML Vial (15:07)
[2025-02-05] MEDS: Estrogens,Conj. 1 Tube 1 DOSE (15:17)
--- NOTE | 2025-02-05 15:56 | PCM.POST.ANE ---
Anesthesia: Postop Eval I Current Vital Signs Temperature: 97.4 F Pulse Rate: 66 Blood Pressure: 112/61 Respiratory Rate: 16 Pulse Ox: 98 Oxygen Delivery Method: Venturi Mask Oxygen Flow Rate (L/min): 4 Assessment Airway patent: Yes Spontaneous unlabored respirations: Yes Mental status: Asleep nausea: No Vomiting: No Anesthesia Complication: No Fluid Hydration Crystalloid volume administer (ml): 1,900 Total IV fluid infused: 1,900 Progress Note Anesthesia document: Postop Eval 1 completed: Yes
--- NOTE | 2025-02-05 18:10 | POSTOPAN2_ITS ---
Anesthesia Postop Eval I Sum Postop Eval Completion status Anesthesia document: Postop Eval 1 completed: Yes Anesthesia Postop Eval I Summary Anesthesia Postop Eval I Summary: Anesthesia Postop Eval I: Assessment Summary Airway patent Yes 02/05/25 15:57 QUALITY ASSURANCE MONITOR [email or web address] Spontaneous unlabored Yes 02/05/25 15:57 QUALITY ASSURANCE MONITOR [email or web address] respirations Mental status Asleep 02/05/25 15:57 QUALITY ASSURANCE MONITOR FINAL.[email or web address] nausea No 02/05/25 15:57 QUALITY ASSURANCE MONITOR FINAL.[email or web address] Vomiting No 02/05/25 15:57 QUALITY ASSURANCE MONITOR [email or web address] Anesthesia Postop Eval I: Fluid Summary Crystalloid volume administer 1,900 02/05/25 15:57 QUALITY ASSURANCE MONITOR [email or web address] (ml) Colloids volume administered ( ml) Blood Product volume administered (ml) Total IV fluid infused 1,900 02/05/25 15:57 QUALITY ASSURANCE MONITOR FINAL.[email or web address] Anesthesia Postop Eval I: Summary Notes Anesthesia Complication No 02/05/25 15:57 QUALITY ASSURANCE MONITOR FINAL.[email or web address] Anesthesia Complication Comment: Post-operative progress note Anesthesia: Postop Eval II Evaluation Mental status: Awake and Calm Pain Level: 2 nausea: No Vomiting: No Complications Anesthesia Complication: No
--- NOTE | 2025-02-05 18:10 | PCM.POSTANE2 ---
Anesthesia Postop Eval I Sum Postop Eval Completion status Anesthesia document: Postop Eval 1 completed: Yes Anesthesia Postop Eval I Summary Anesthesia Postop Eval I Summary: Anesthesia Postop Eval I: Assessment Summary Airway patent Yes 02/05/25 15:57 ADJUNCT PHYSICAL EDUCATION [email or web address] Spontaneous unlabored Yes 02/05/25 15:57 ADJUNCT PHYSICAL EDUCATION INSTRUCTOR.[email or web address] respirations Mental status Asleep 02/05/25 15:57 ADJUNCT PHYSICAL EDUCATION INSTRUCTOR.[email or web address] nausea No 02/05/25 15:57 ADJUNCT PHYSICAL EDUCATION INSTRUCTOR.[email or web address] Vomiting No 02/05/25 15:57 ADJUNCT PHYSICAL EDUCATION INSTRUCTOR.[email or web address] Anesthesia Postop Eval I: Fluid Summary Crystalloid volume administer 1,900 02/05/25 15:57 ADJUNCT PHYSICAL EDUCATION INSTRUCTOR.[email or web address] (ml) Colloids volume administered ( ml) Blood Product volume administered (ml) Total IV fluid infused 1,900 02/05/25 15:57 ADJUNCT PHYSICAL EDUCATION INSTRUCTOR.[email or web address] Anesthesia Postop Eval I: Summary Notes Anesthesia Complication No 02/05/25 15:57 ADJUNCT PHYSICAL EDUCATION INSTRUCTOR.[email or web address] Anesthesia Complication Comment: Post-operative progress note Anesthesia: Postop Eval II Evaluation Mental status: Awake and Calm Pain Level: 2 nausea: No Vomiting: No Complications Anesthesia Complication: No
[2025-02-05] MEDS: Docusate Sodium 100 MG Capsule PO (21:15)
[2025-02-06 00:28] VITALS: BP 111/58; PULSE 64; RESP 16; TEMP 36.6; O2SAT 100
[2025-02-06 04:28] VITALS: BP 112/57; PULSE 62; RESP 16; TEMP 36.4; O2SAT 98
[2025-02-06] MEDS: Acetaminophen 500 MG Tablet 1000 MG PO ×2 (04:37→10:23)
[2025-02-06 06:10] LABS: Hematocrit 37.8 % (37-47); Hemoglobin 12.7 g/dL (12.0-15.0); Mean Corp Hgb Conc 33.6 g/dL (32-36); Mean Corpuscular Hgb 31.3 pg (27.0-32.0); Mean Corpuscular Volume 93.1 fL (81-99); Mean Platelet Vol. 9.1 fl (6.2-12.0); Platelet Count 312 K/mm3 (150-450); RBC Distribution Width CV 12.7 % (11.6-14.6); RBC Distribution Width SD 43.6 fl (35.1-43.9); Red Blood Count 4.06 M/mm3 (4.2-5.4)
[2025-02-06] MEDS: 0.9% Saline Lock 10 ML Syringe IV (06:57)
[2025-02-06 08:53] VITALS: BP 101/56; PULSE 60; RESP 16; TEMP 36.6; O2SAT 100
[2025-02-06 09:00] VITALS: PULSE 60
[2025-02-06] MEDS: Enoxaparin 40 MG/0.4 ML Syringe SC (09:00)
[2025-02-06] MEDS: Atorvastatin Calcium 10 MG Tablet PO (09:00)
[2025-02-06] MEDS: Docusate Sodium 100 MG Capsule PO (09:00)
[2025-02-06] MEDS: Metoprolol(XL)Succ 25 MG Tablet PO (09:00)
[2025-02-06] MEDS: Ensure Plus High Protein 120 ML LIQUID PO ×2 (09:00→12:30)
--- NOTE | 2025-02-06 09:58 | PCM.PN.GU ---
Subjective Subjective Sitting up in bedside chair. No issues overnight. Tolerating p.o. intake without nausea or vomiting. Pain is controlled. Objective Data Objective Data Vital Signs: Vital Signs Temp Pulse Resp BP Pulse Ox O2 Del Method O2 Flow Rate 97.8 F 60 16 101/56 L 100 Room Air 4 02/06/25 08:53 02/06/25 09:00 02/06/25 08:53 02/06/25 08:53 02/06/25 08:53 02/06/25 08:53 02/05/25 16:48 Oxygen Flow Rate (L/min) 4 Oxygen Delivery Method Room Air Weight: 87 kg Body Mass Index (BMI) 31.4 Intake & Output: Intake and Output for Last 24 Hours 02/04/25 02/05/25 02/06/25 23:59 23:59 23:59 Intake Total 2870.92 / 2870.92 Output Total 2400 / 2400 500 / 500 Balance 470.92 / 470.92 -500 / -500 Lab / Micro Data 02/06/25 05:19 01/29/25 09:41 Labs: Laboratory Results - last 24 hr 02/05/25 10:31: WBC 12.0 H, RBC 4.51, Hgb 14.1, Hct 42.9, MCV 95.1, MCH 31.3, MCHC 32.9, RDW Std Deviation 44.6 H, RDW Coeff of Abebe 12.7, Plt Count 353, MPV 8.9 02/05/25 10:37: POC Glucose 69 L 02/06/25 05:19: WBC 16.0 H, RBC 4.06 L, Hgb 12.7, Hct 37.8, MCV 93.1, MCH 31.3, MCHC 33.6, RDW Std Deviation 43.6, RDW Coeff of Abebe 12.7, Plt Count 312, MPV 9.1 Physical Exam Narrative Alert and oriented x 3, no acute distress. Sitting up in bedside chair. Abdomen soft, nontender nondistended Quevedo catheter draining clear yellow urine was removed without incident Vaginal packing was removed without difficulty, no concerns SCDs in place Assessment & Plan Assessment/Plan (1) Cystocele with incomplete uterovaginal prolapse: PLAN: Plan Trial of void Home later today
[2025-02-06 11:10] VITALS: O2SAT 94
--- NOTE | 2025-02-06 12:10 | CASEMGMT ---
RN CM Face to Face with patient for initial transition planning/care coordination assessment. RN CM introduced self and role at [facility]. Patient sitting in chair, alert and oriented, at bedside. Patient willing to participate in assessment and is able to answer all questions appropriately. Care providers, pharmacy, and demographics verified. Strata: 1 PCP: [facility] Specialists: Loni COFFEE SOMMELIER; [place] urologist Preferred Pharmacy: [facility] Retail at discharge. Insurance: [facility], [employer] Prescription Benefit: yes Living Will/HPOA: yes, Nikkie LNOK: Living Arrangements: Patient lives with in a 2 story home. Patient is independent and able to ambulate stairs. Transportation: self, DME/HHC: Patient states she has raised toilet, cane, crutches, and grab bars at home. No previous HHC or SNF Patient wishes to discharge home, denies need for home health at this time. Patient states he has no further needs or concerns at this time. CM to follow for discharge planning needs that may arise. Disposition Plan: Patient to discharge home with family support and follow-up plans in place. Arleth COOMBS, RN, CM
[2025-02-06 14:00] VITALS: BP 118/84; PULSE 53; RESP 16; TEMP 37; O2SAT 100
== END 2025-02-06 15:32 | disposition home or self-care (01) | DRG 743 ==
LOC: SDC 15:36 → MS3 15:36
PROVIDERS: Anesthesiology; Urology; Admitting Provider Obstetrics & Gynecology; PCP Family Medicine; Referring Provider Obstetrics & Gynecology; Visit Provider Obstetrics & Gynecology
PROC: 0UT77ZZ Resection of Bilateral Fallopian Tubes, Via Natural or Artificial Opening (ICD-10-PCS; CPT 58260; principal; 2025-02-05 11:40)
PROC: 0UT97ZZ Resection of Uterus, Via Natural or Artificial Opening (ICD-10-PCS; CPT 57260; 2025-02-05 11:40)
DX: N81.2 Incomplete uterovaginal prolapse (principal); M54.9 Dorsalgia, unspecified; Q52.4 Other congenital malformations of vagina; Z79.02 Long term (current) use of antithrombotics/antiplatelets; Z79.899 Other long term (current) drug therapy; R35.0 Frequency of micturition; R32 Unspecified urinary incontinence; R39.15 Urgency of urination; N95.2 Postmenopausal atrophic vaginitis; N84.1 Polyp of cervix uteri
CPT/HCPCS: 36415; 80053; 82962; 83735; 85027; 86850; 86900; 86901; 88305; 88307; 93005; 94668; C1769; C1771; A4216; C1758; J2405; J3475